=== PATIENT | male | born 1945 | race Caucasian/White ===

== ENCOUNTER → 2021-08-06 | Outpatient (CLI) | payer OTHER | LOC: SJCVCIMAG 07:49 | PROVIDERS: ATTEND Internal Medicine | DX: I08.3 Combined rheumatic disorders of mitral, aortic and tricuspid valves (principal); I49.1 Atrial premature depolarization; R00.0 Tachycardia, unspecified; R00.2 Palpitations; R06.00 Dyspnea, unspecified; R07.89 Other chest pain; M19.90 Unspecified osteoarthritis, unspecified site; Z87.891 Personal history of nicotine dependence ==

== ENCOUNTER → 2021-08-12 | Outpatient (CLI) | payer OTHER ==
[2021-08-12 12:46] VITALS: BP 131/67
--- NOTE | 2021-08-12 13:56 | LINQ ---
[facility] [place] [address] LINQ PROCEDURE REPORT Name: ADAN MALAVE [id number] Admission: 08/12/21 Attend Phys: Reno Lane Discharge: Date of : 45 Report #: [id number] THIS REPORT FOR: cc: Armando Demarco Louis D. DO Lammoglia, Francisco J. MD ~ APPROVED REPORT Study performed: 08/12/2021 12:26:30 Patient Status: Out-Patient Room #: Event Personnel: Dr Reno Lane Exam: LINQ inplant Indications: Syncope The patient is a 76 year-old male with a history of Palpitations syncope. Implanted Devices: [employer] Reveal LINQ LNQ11 EXP Date: 2021-11-26 SN: [id number] Procedure The patient underwent informed consent. We discussed the details of the procedure including the risks, which include, but not limited to bleeding, infection, vascular damage, cardiac perforation, and pneumothorax. After informed consent was obtained he was brought to the cardiac catheterization laboratory prepped and hold. Left chest was prepped and draped in usual sterile manner per utilizing 1% lidocaine a wheal was raised and then a 25-gauge spinal needle was utilized to anesthetize the proposed tract. An 11 blade was used to make a small incision and using both sharp and blunt dissection a tract was developed. The device was then deployed with the deployment tool without difficulty. Subcutaneous tissue was closed with 2 simple interrupted sutures and the skin was closed with subcuticular. Dermabond Steri-Strips OpSite were then utilized. Electrode Parameters P Wave: 0.78 Complications The patient tolerated the procedure well and there were no complications associated with the procedure. [facility] [place] [place] [address] [employer] PROCEDURE REPORT Name: FRIEDAADAN Room #: REG [facility]#: [id number] Admission: 08/12/21 Attend Phys: Reno Root Discharge: Date of : 45 Report #: [id number] Conclusion 1. Successful in plantation evidence plantable loop recorder Recommendations 1. Routine post insertion protocol <ELECTRONICALLY SIGNED> By: Reno Lane MD 08/12/[id number] MD /INF
== END | disposition home or self-care (01) ==
LOC: CATH 08-08 12:43
PROVIDERS: ATTEND Internal Medicine
DX: R55 Syncope and collapse (principal); R00.2 Palpitations